=== PATIENT | female | born 1965 | race Caucasian/White ===

== ENCOUNTER 2021-05-05 08:40 | Emergency (ER) | payer BC ==
[2021-05-05 09:59] LABS: CORONAVIRUS COVID-19 NAA NEGATIVE (NEGATIVE); RESPIRATORY SYNCYTIAL VIR NAA NEGATIVE (NEGATIVE)
== END 2021-05-05 10:50 | disposition home or self-care (01) ==
LOC: LL.ED 08:40
DX: J18.9 Pneumonia, unspecified organism (principal); Z20.822 Contact with and (suspected) exposure to COVID-19
CPT/HCPCS: 0241U; 71046; 99283; 99284

== ENCOUNTER 2022-02-22 08:27 | Emergency (ER) | payer BC ==
[2022-02-22] MEDS ORDERED: Albuterol/Ipratropium 3.0-0.5 MG/3 ML Neb Soln NEB ONE (09:02)
[2022-02-22] MEDS ORDERED: Aspirin 81 MG Tab.Chew PO ONE (09:04)
[2022-02-22] MEDS ORDERED: Aspirin 81 MG Tab.Chew ONE (09:05)
[2022-02-22 09:27] LABS: RESPIRATORY SYNCYTIAL VIR NAA NEGATIVE (NEGATIVE)
[2022-02-22 09:48] LABS: CORONAVIRUS COVID-19 NAA POSITIVE (NEGATIVE)
[2022-02-22 10:09] LABS: ANION GAP 12.1 meq/L (7-15); PTT,PARTIAL THROMBOPLSTIN TIME 22.9 SEC (23.6-29.8)
== END 2022-02-22 11:00 | disposition home or self-care (01) ==
LOC: LL.ED 08:27
DX: U07.1 COVID-19 (principal); J45.901 Unspecified asthma with (acute) exacerbation; E78.00 Pure hypercholesterolemia, unspecified; E66.9 Obesity, unspecified; Z68.41 Body mass index [BMI] 40.0-44.9, adult; Z79.899 Other long term (current) drug therapy; Z79.84 Long term (current) use of oral hypoglycemic drugs
CPT/HCPCS: 0241U; 36415; 71046; 80053; 83735; 84100; 84484; 85025; 85610; 85730; 93005; 93010; 94640; 99284; A9270-GY; J7620-GY

== ENCOUNTER 2022-04-03 17:20 | Emergency (ER) | payer BC ==
[2022-04-03] MEDS ORDERED: Ketorolac 30 MG/ML SDV IVPUSH ONE (18:11)
[2022-04-03] MEDS ORDERED: Sodium Chloride 0.9% 1,000 ML IV ONE (18:12)
[2022-04-03] MEDS ORDERED: Acetaminophen 500 MG Tab PO ONE (18:17)
[2022-04-03 18:31] LABS: CHLORIDE,CL 100 mmol/L (98-107); SODIUM,NA 135 mmol/L (136-145)
[2022-04-03 18:32] LABS: ANION GAP 11.9 meq/L (7-15); ESTIMATED GFR 74 mL/min (>=60)
[2022-04-03 18:49] LABS: CORONAVIRUS COVID-19 NAA NEGATIVE (NEGATIVE); RESPIRATORY SYNCYTIAL VIR NAA NEGATIVE (NEGATIVE)
== END 2022-04-03 20:00 | disposition home or self-care (01) ==
LOC: LL.ED 17:20
DX: J10.1 Influenza due to other identified influenza virus with other respiratory manifestations (principal); J45.909 Unspecified asthma, uncomplicated; E78.00 Pure hypercholesterolemia, unspecified; I10 Essential (primary) hypertension; E03.9 Hypothyroidism, unspecified; E66.9 Obesity, unspecified; Z77.22 Contact with and (suspected) exposure to environmental tobacco smoke (acute) (chronic); Z79.899 Other long term (current) drug therapy; Z20.822 Contact with and (suspected) exposure to COVID-19
CPT/HCPCS: 0241U; 36415; 71046; 80053; 85025; 87081; 87430; 96361; 96374; 99283-25; A9270-GY; J1885; J7030

== ENCOUNTER 2022-04-05 03:34 | Emergency (ER) | payer BC ==
[2022-04-05] MEDS: Ondansetron 4 MG Tab.DIS PO ONE (03:55)
[2022-04-05 04:36] LABS: ANION GAP 11.4 meq/L (7-15)
[2022-04-05] MEDS: Magnesium Chloride 64 MG Tab.ER PO STA (04:47)
[2022-04-05] MEDS: Acetaminophen 500 MG Tab PO ONE (05:10)
== END 2022-04-05 05:15 | disposition home or self-care (01) ==
LOC: LL.ED 03:34
DX: J10.1 Influenza due to other identified influenza virus with other respiratory manifestations (principal); E83.42 Hypomagnesemia; E87.1 Hypo-osmolality and hyponatremia; J45.909 Unspecified asthma, uncomplicated; E78.00 Pure hypercholesterolemia, unspecified; I10 Essential (primary) hypertension; E66.9 Obesity, unspecified; Z68.41 Body mass index [BMI] 40.0-44.9, adult; Z79.899 Other long term (current) drug therapy; Z79.84 Long term (current) use of oral hypoglycemic drugs
CPT/HCPCS: 36415; 80053; 83735; 99284; A9270-GY